=== PATIENT | male | born 1990 | race Caucasian/White ===

== ENCOUNTER 2017-02-09 11:16 | Emergency (ER) | payer OTHER ==
[~2017-02-09] VITALS: Ht 180.3 cm; Wt 84.1 kg
[2017-02-09 11:19] VITALS: BP 141/85; PULSE 71; TEMP 97.8
[2017-02-09] MEDS ORDERED: IBU800 M1 PO ×2 (12:00→12:07)
[2017-02-09] MEDS ORDERED: NORCO 325 MG-51 TAB PO (12:00)
== END 2017-02-09 12:09 | disposition home or self-care (01) ==
LOC: COL.ER 11:16 → EDBD 11:28 → COL.ER 11:28
DX: G89.29 Other chronic pain (principal); M25.561 Pain in right knee; F17.200 Nicotine dependence, unspecified, uncomplicated